=== PATIENT | male | born 1965 | race Caucasian/White ===

== ENCOUNTER 2018-02-14 11:13 | Emergency (ER) | payer MEDICAID ==
--- NOTE | 2018-02-14 11:43 | EDPHY ---
H & P Smoking Status: Never smoked Time Seen by Provider: 02/14/18 11:27 HPI/ROS: Chief complaint. Abdominal pain HPI. Patient 52-year-old male with abdominal pain for 2 days. Initially the pain was right upper quadrant. He has been using medication Zofran for nausea. He has become constipated with last bowel movement 2 days ago. Now he has generalized crampy type abdominal pain as well as continuing right upper quadrant pain. He had similar symptoms of right upper quadrant pain 2 weeks ago and was seen in another emergency department though he is not quite sure which 1. They did an ultrasound and he has gallstones. He is currently trying to his gallstones non operatively. The constipation has been treated over the last 2 days with enema and laxatives. No fever, chest discomfort, trouble breathing. Apparently nausea but no vomiting. The right upper quadrant pain has been persistent for 2 days. ROS 10 systems were reviewed and negative with the exception of the elements mentioned in the history of present illness (Yisel Casillas) Past Medical/Surgical History: Gallstones (Yisel Casillas) Social History: Single, nonsmoker, no alcohol (Yisel Casillas) Physical Exam: General Appearance: Alert well-developed male moderate distress vital signs are stable Eyes: Pupils equal and round no pallor or injection. ENT, Mouth: Mucous membranes are moist. Respiratory: There are no retractions, lungs are clear to auscultation. Cardiovascular: Regular rate and rhythm. Gastrointestinal: Abdomen is soft with right upper quadrant tenderness. He also has generalized tenderness especially in the periumbilical area. Normal bowel sounds. No masses. Neurological: Awake and alert, sensory and motor exams grossly normal. Skin: Warm and dry, no rashes. Musculoskeletal: Neck is supple nontender. Extremities symmetrical, full range of motion. Psychiatric: Patient is oriented X 3, there is no agitation. (Yisel Casillas) Constitutional: Initial Vital Signs Temperature (C) 36.8 C 02/14/18 11:16 Heart Rate 69 02/14/18 11:16 Respiratory Rate 18 02/14/18 11:16 Blood Pressure 131/87 H 02/14/18 11:16 O2 Sat (%) 96 02/14/18 11:16 O2 Delivery Mode Room Air O2 (L/minute) 2 Allergies/Adverse Reactions: No Known Allergies Allergy (Unverified 02/14/18 11:18) Home Medications: Medication Instructions Recorded Dicyclomine [Bentyl 20 MG (*)] 20 mg PO PRN PRN #10 tab 02/14/18 Peg 3350/Na Sulf,Bicarb,Cl/KCl 2,000 ml PO BOLUS #1 btl 02/14/18 [Golytely (RX)] Medical Decision Making - Diagnostics Imaging Results: Imaging Impressions Abdomen Ultrasound 02/14/18 11:57 Impression: 1. There is an echogenic solid 3.3 cm mass in the inferior right hepatic lobe. Multiphasic contrast-enhanced CT imaging is suggested for further assessment. 2. Cholelithiasis with gallbladder sludge and hydrops. There is no bile duct dilatation. If there is further clinical concern regarding gallbladder dysfunction/pathology, a HIDA scan could be considered. 3. Nonvisualization of the pancreas secondary to overlying bowel gas. Findings were discussed with YISEL CASILLAS MD at 13:00, on 02/14/2018. Abdomen X-Ray 02/14/18 11:57 Impression: Proximal constipation with possible fecal impaction versus mid colon obstruction. Results discussed with Dr. Casillas at 12:[address] 02/14/18 12:53 Impression: 1. Acute cholecystitis with cholelithiasis and pericholecystic inflammatory changes. Recommend surgery consult. 2. Constipation involving the ascending and transverse colon. Recommend follow- up colonoscopy given the atypical decompression of the descending colon beginning at the splenic flexure for further evaluation. 3. Indeterminate 3.8 x 3.5 cm mass in the right lobe of the liver inferiorly for which follow-up triple phase hemangioma protocol CT abdomen with contrast is recommended to differentiate malignant neoplasm from atypical hemangioma. Findings and recommendations discussed with Emergency Department physician, Yisel Casillas at 1350 hour, 02/14/2018. Final report concurs with initial preliminary interpretation. Upright KUB shows multiple air-fluid levels with proximal constipation no stool in the descending Colon Right upper quadrant ultrasound reviewed by me and discussed with Dr. Chavis shows gallbladder sludge. There are dependent, mobile stones. No wall thickening. No dilatation of the common bile duct. Probable hemangioma in hepatic lobe of his liver (Yisel Casillas) Procedures: IV normal saline. Dilaudid for pain. Zofran for nausea (Yisel Casillas) ED Course/Re-evaluation: Re-evaluation at 2:00 p.m.. Patient and I discussed imaging and lab results including recommendation for surgical evaluation. He expresses understanding and agreement I consulted discussed the case with Dr. Galvez for surgery who will see the patient in the ED (Yisel Casillas) I took over care of this patient at 3:[address] Yisel Casillas. This patient is currently being evaluated by Dr. Triston Galvez of the Surgical service for possible operative management of acute cholecystitis. 3:55 p.m., the patient has been seen and evaluated by general surgeon Dr. Triston Galvez. The patient is declining surgical management or inpatient admission for observation at this time. Dr. Galvez has cleared this patient for discharge to home. The patient is to follow up with his primary care physician. Dr. Galvez suspects he will be back when he has another gallbladder attack. The patient will be prescribed a half prep of GoLYTELY for constipation as well as Bentyl 20 mg q.[address] Galvez also recommends a [address] to evaluate the patient's liver mass. This can be set up through his primary care physician and the patient's discharge instructions will reflect this. The patient's remaining emergency department course under my care has been uneventful. He is currently pain-free and has a benign abdomen. He was discharged in good condition according to Dr. Galvez's instructions. (Bonnie Kam) Care Turn Over: Care to Dr. Kam at 3:00 p.m. (Yisel Casillas) - Data Points Laboratory Results: Laboratory Results 02/14/18 11:30 02/14/18 11:30 02/14/18 02/14/18 11:30 11:30 WBC 13.71 10^3/uL H 10^3/uL (3.80-9.50) RBC 5.22 10^6/uL 10^6/uL (4.40-6.38) Hgb 16.3 g/dL g/dL (13.7-17.5) Hct 46.3 % % (40.0-51.0) MCV 88.7 fL fL (81.5-99.8) MCH 31.2 pg pg (27.9-34.1) MCHC 35.2 g/dL g/dL (32.4-36.7) RDW 12.2 % % (11.5-15.2) Plt Count 204 10^3/uL 10^3/uL (150-400) MPV 8.7 fL fL (8.7-11.7) Neut % (Auto) 80.4 % H % (39.3-74.2) Lymph % (Auto) 10.6 % L % (15.0-45.0) Polk % (Auto) 7.5 % % (4.5-13.0) Eos % (Auto) 0.6 % % (0.6-7.6) Baso % (Auto) 0.4 % % (0.3-1.7) Nucleat RBC Rel Count 0.0 % % (0.0-0.2) Absolute Neuts (auto) 11.03 10^3/uL H 10^3/uL (1.70-6.50) Absolute Lymphs (auto) 1.45 10^3/uL 10^3/uL (1.00-3.00) Absolute Monos (auto) 1.03 10^3/uL H 10^3/uL (0.30-0.80) Absolute Eos (auto) 0.08 10^3/uL 10^3/uL (0.03-0.40) Absolute Basos (auto) 0.05 10^3/uL 10^3/uL (0.02-0.10) Absolute Nucleated RBC 0.00 10^3/uL 10^3/uL (0-0.01) Immature Gran % 0.5 % % (0.0-1.1) Immature Gran # 0.07 10^3/uL 10^3/uL (0.00-0.10) Sodium 138 mEq/L mEq/L (135-145) Potassium 4.3 mEq/L mEq/L (3.3-5.0) Chloride 101 mEq/L mEq/L (97-110) Carbon Dioxide 26 mEq/l mEq/l (22-31) Anion Gap 11 mEq/L mEq/L (6-14) BUN 12 mg/dL mg/dL (7-23) Creatinine 0.9 mg/dL mg/dL (0.7-1.3) Estimated GFR > 60 Glucose 109 mg/dL H mg/dL (70-100) Calcium 9.6 mg/dL mg/dL (8.5-10.4) Total Bilirubin 1.7 mg/dL H mg/dL (0.1-1.4) Conjugated Bilirubin 0.2 mg/dL mg/dL (0.0-0.5) Unconjugated Bilirubin 1.5 mg/dL H mg/dL (0.0-1.1) AST 28 IU/L IU/L (17-59) ALT 34 IU/L IU/L (21-72) Alkaline Phosphatase 111 IU/L IU/L (38-126) Total Protein 7.9 g/dL g/dL (6.3-8.2) Albumin 4.8 g/dL g/dL (3.5-5.0) Lipase 129 IU/L IU/L (23-300) Medications Given: Discontinued Medications Hydromorphone HCl (Dilaudid) 0.5 mg IVP EDNOW ONE Stop: 02/14/18 11:57 Last Admin: 02/14/18 12:04 Dose: 0.5 mg Sodium Chloride (Ns) 1,000 mls @ 0 mls/hr IV EDNOW ONE; Wide Open PRN Reason: Protocol Stop: 02/14/18 11:57 Last Admin: 02/14/18 12:04 Dose: 1,000 mls Sodium Chloride (Ns) 1,000 mls @ 0 mls/hr IV EDNOW ONE; Wide Open PRN Reason: Protocol Stop: 02/14/18 11:57 Last Admin: 02/14/18 12:06 Dose: 1,000 mls Ondansetron HCl (Zofran) 4 mg IVP EDNOW ONE Stop: 02/14/18 11:57 Last Admin: 02/14/18 12:06 Dose: 4 mg Departure - Departure Disposition: Home, Routine, Self-Care Clinical Impression: Gallstones, Biliary colic, Constipation, Liver lesion Condition: Good Instructions: Biliary Colic (ED), Gallstones (ED), Constipation (ED) Additional Instructions: Read and follow provided instructions. Follow-up with your primary care physician in 2-3 days for re-evaluation as discussed with Dr. Galvez. Your primary care physician is to arrange for you to have a [address] scan to evaluate the mass in your liver. I will prescribe you a 1/2 prep of GoLYTELY to treat your constipation. You will also be prescribed Bentyl that you can take as needed for constipation. Return to the emergency department for return of abdominal pain, vomiting, fever or other serious concerns. Referrals: NONE *PRIMARY CARE P,. [Primary Care Provider] - As per Instructions Prescriptions: Dicyclomine [Bentyl 20 MG (*)] 20 mg PO PRN PRN #10 tab PRN Reason: Constipation Peg 3350/Na Sulf,Bicarb,Cl/KCl [Golytely (RX)] 2,000 ml PO BOLUS #1 btl
[2018-02-14] MEDS ORDERED: HYDROmorphONE/DILAUDID 2 MG/ML INJ IVP ONE (11:56)
[2018-02-14] MEDS ORDERED: NS 1,000 ML IV ONE ×2 (11:56)
[2018-02-14] MEDS ORDERED: ONDANSETRON 4 MG/2 ML VIAL IVP ONE (11:56)
[2018-02-14 12:06] LABS: PLATELET COUNT 204 10^3/uL (150-400)
[2018-02-14] MEDS ORDERED: IOPAMIDOL (ISOVUE-300) 100 ML BTL ONE (13:04)
[2018-02-14 15:52] VITALS: BP 118/81
--- NOTE | 2018-02-14 16:57 | GCON ---
REASON FOR CONSULTATION: Gallbladder disease and hepatic mass. HISTORY: The patient is a 52-year-old white male who first had a biliary attack approximately 1-1/2 years ago. Two weeks ago, he had a large amount of fatty food, had severe right upper quadrant pain and went to another hospital where he was diagnosed as having gallstones. His pain resolved. He was sent home with Silo Labsan and Huntington. Two days ago after eating almonds, he had the onset of right upper quadrant pain, which was started as an ache, then became a sharp pain that he could get away from. He could not find a comfortable position. He did try his pain medications, which reduced the intensity. He slept poorly that night in that he could not find a comfortable position. In the morning, he had no pain, but felt more issues with lower abdominal pain. He has had a recrudescence of his pain today. Note is made that his last stool was on Tuesday. He presented to the emergency department where an x-ray showed that he was full of stool that had accumulated in his ascending and transverse colon. An ultrasound showed a gallbladder with stones. He had a negative Boston sign. There is no wall thickening seen and no pericholecystic fluid. Subsequently a CT scan was obtained, which did show pericholecystic fluid, gallbladder wall thickening, and stones. Both ultrasound and CT scan revealed a mass at the inferior edge of the right lobe of the liver, which measured 3.3 x 3.3 x 3.0 cm. It does not appear to be vascular; however, 3-phase study was not performed and given his dye load can not be performed today. I was asked to come see the patient for further evaluation. SOCIAL HISTORY: He does not drink. He does not smoke. 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 ALLERGIES: He has no known drug allergies. MEDICATIONS: He has been using Zofran and Huntington for nausea and pain control. In addition, he takes vitamin D, omega-3, multivitamin, spirulina, glucosamine, and magnesium. PAST SURGICAL HISTORY: Include 3 right knee surgeries. First was an ACL with repair of the hamstring tendon. He had a patellar fracture with fragment removal, and then, he had a clean-out. He did have a pulmonary embolism several years ago after he had significant romantic breakup. He sat at home and did not move for 3 to 5 days. At that time, he was placed on anticoagulation for 6 months. He says he had a hypercoagulation workup, which was negative. There is no history of rheumatic fever, tuberculosis, or transfusions. He is hepatitis B antigen positive. REVIEW OF SYSTEMS: He has had concussions. He wears lenses for visual correction. He has 1 dental implant. Review of systems otherwise quite negative. There are no limits on his activities. No history of steroid use. PHYSICAL EXAMINATION: GENERAL: He is awake, alert, and pleasant. VITAL SIGNS: Blood pressure 98/57, at 72. His respirations are 16. Saturations are 92% on 2 L/minute. NEUROLOGIC: He is awake, alert, oriented, moving all extremities. HEENT/NECK: Head: Normocephalic and atraumatic. Pupils equal, round, reactive to light and accommodation. He has normal dental occlusion. There are no carotid bruits. Thyroid is not enlarged. Neck is supple. BACK: Unremarkable. LUNGS: Clear to auscultation. CARDIAC: Shows S1, S2 to be normal with normal split of S2 without murmurs, rubs, or gallops. ABDOMEN: Tender in the right abdomen with cough. His bowel sounds are hypoactive. To palpation on a scale of 1-10, left upper quadrant is 1, left mid abdomen is 1, left lower quadrant is 2, epigastrium is 1, periumbilical area is 3, suprapubic area is 2, right upper quadrant is 4 with a positive Boston sign, right mid abdomen is 4, right lower quadrant is 1. LABORATORY DATA: White blood cell count is 13.7 with 80% neutrophils, hematocrit is 46, platelets are 204. His bilirubin is 1.7 with mainly indirect. He has never heard the term Gilbert disease before. His lipase is normal at 129, his alkaline phosphatase is 111, his transaminases are 28 and 34 respectively. IMPRESSION/RECOMMENDATIONS: Long discussion was carried out regarding biliary physiology. He has wanted to try to use a nonoperative approach to cleanse of his gallstones. He is convinced that is a reasonable alternative for him. I have suggested that since his pain is now almost fully resolved that he could try Bentyl for recurrent colic, but I have told him there is a very strong chance he will be back in an ER or hospital within next 2 weeks with recurrent biliary issues. 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 I suggest that he talk to his family physician and have a 3- phase study and make plans for percutaneous biopsy of the mass. He understands these thoughts. He states he will return if he has further issues. /[id number]/MODL MTDD
== END 2018-02-14 16:15 | disposition home or self-care (01) ==
DX: K80.20 Calculus of gallbladder without cholecystitis without obstruction (principal); K59.00 Constipation, unspecified; K76.9 Liver disease, unspecified; E86.9 Volume depletion, unspecified; Z86.711 Personal history of pulmonary embolism
CPT/HCPCS: 96374; J1170; J2405; Q9967

== ENCOUNTER 2018-02-15 00:06 | Emergency (ER) | payer MEDICAID ==
[2018-02-15] MEDS ORDERED: KETOROLAC 30 MG/1 ML SDV IVP ONE (00:36)
[2018-02-15] MEDS ORDERED: ONDANSETRON 4 MG/2 ML VIAL IVP ONE (00:36)
[2018-02-15] MEDS ORDERED: NS 1,000 ML IV ONE (00:36)
[2018-02-15] MEDS ORDERED: KETOROLAC 15 MG/1 ML SDV ONE (00:44)
--- NOTE | 2018-02-15 00:46 | EDPHY ---
H & P Stated Complaint: ABD pain-seen 02/14 for gallbladder and partial SBO and CP Time Seen by Provider: 02/15/18 00:15 HPI/ROS: HPI The patient presents with ongoing abdominal pain and bloating since he left the emergency department yesterday. The patient has had a total of about 2 and half days of his right upper quadrant abdominal pain associated with constipation. He was evaluated in the ER yesterday and had abdominal ultrasound and CT scan as well as labs. Imaging demonstrated dilated gallbladder with sludge and stones, constipation, liver mass. Patient was seen by Dr. Galvez of surgery though declined admission for biliary colic. He went home and drink GoLYTELY, used an enema, took Pepto-Bismol, however his symptoms progressed and that is why he presents.. REVIEW OF SYSTEMS 10 systems were reviewed and negative with the exception of the elements mentioned in the history of present illness. PMHx: gallstones Soc Hx: housed PHYSICAL General Appearance: Alert, no distress Eyes: Pupils equal and round no pallor or injection ENT, Mouth: Mucous membranes moist Respiratory: There are no retractions, lungs are clear to auscultation Cardiovascular: Regular rate and rhythm Gastrointestinal: Abdomen is slightly distended, tender in the right upper quadrant, no masses, bowel sounds normal Neurological: A&O, moves all extremities Skin: Warm and dry, no rashes Musculoskeletal: Neck is supple non tender Extremities: symmetrical, full range of motion Psychiatric: Patient is oriented X 3, there is no agitation Source: Patient Exam Limitations: No limitations - Personal History Current Tetanus Diphtheria and Acellular Pertussis (TDAP): Yes - Medical/Surgical History Hx Asthma: No Hx Chronic Respiratory Disease: No Hx Diabetes: No Hx Cardiac Disease: No Hx Renal Disease: No Hx Cirrhosis: No Hx Alcoholism: No Other PMH: Gallstones, partial SBO, - Social History Smoking Status: Never smoked Constitutional: Initial Vital Signs Temperature (C) 37 C 02/15/18 00:09 Heart Rate 79 02/15/18 00:09 Respiratory Rate 16 02/15/18 00:09 Blood Pressure 134/77 H 02/15/18 00:09 O2 Sat (%) 95 02/15/18 00:09 O2 Delivery Mode Room Air Allergies/Adverse Reactions: No Known Allergies Allergy (Unverified 02/15/18 00:09) Home Medications: Medication Instructions Recorded Dicyclomine [Bentyl 20 MG (*)] 20 mg PO PRN PRN #10 tab 02/14/18 Peg 3350/Na Sulf,Bicarb,Cl/KCl 2,000 ml PO BOLUS #1 btl 02/14/18 [Golytely (RX)] Medical Decision Making Differential Diagnosis: This is a 52-year-old man with known gallstones as well as constipation who was in the ER within the last 24 hr for abdominal pain. He decided to go home after surgical consultation. He has been taking laxatives and drinking GoLYTELY , however he is having ongoing abdominal pain and that has brought him back to the emergency department. Here, he is slightly distended with tenderness in his upper abdomen. In the emergency department, IV line was placed and patient was given IV fluids. Basic labs were all unchanged from earlier in the day today. He wanted to try drinking his GoLYTELY here and was able to do this. He had several bowel movements afterwards and felt much better. Repeat abdominal exam was benign. I feel that his symptoms on this visit were due to constipation more than from biliary colic. He felt well enough to go home and asked to be discharged. I explained to him that he will need follow-up with General surgery for his gallstones if he has any ongoing right upper quadrant abdominal pain. He is aware of this. - Data Points Laboratory Results: Laboratory Results 02/15/18 00:50 02/15/18 00:50 Medications Given: Discontinued Medications Al Hydroxide/Mg Hydroxide (Maalox Susp) 30 ml PO EDNOW ONE Stop: 02/15/18 01:37 Last Admin: 02/15/18 01:41 Dose: 30 ml Dicyclomine HCl (Bentyl) 20 mg PO EDNOW ONE Stop: 02/15/18 01:37 Last Admin: 02/15/18 01:40 Dose: 20 mg Sodium Chloride (Ns) 1,000 mls @ 0 mls/hr IV EDNOW ONE; Wide Open PRN Reason: Protocol Stop: 02/15/18 00:37 Last Admin: 02/15/18 00:51 Dose: 1,000 mls Ketorolac Tromethamine (Toradol) 15 mg IVP EDNOW ONE Stop: 02/15/18 00:37 Last Admin: 02/15/18 00:53 Dose: 15 mg Lidocaine (Lidocaine 2% Viscous) 5 ml PO EDNOW ONE Stop: 02/15/18 01:37 Last Admin: 02/15/18 01:41 Dose: 5 ml Ondansetron HCl (Zofran) 4 mg IVP EDNOW ONE Stop: 02/15/18 00:37 Last Admin: 02/15/18 00:52 Dose: 4 mg Departure - Departure Disposition: Home, Routine, Self-Care Clinical Impression: Constipation, Biliary colic Condition: Good Instructions: Constipation (ED) Additional Instructions: Please make sure to drink plenty of fluids. You should return to the emergency department if your worse in any way. Please follow-up with your primary care doctor about the mass seen on your liver. Referrals: NONE *PRIMARY CARE P,. [Primary Care Provider] - As per Instructions
[2018-02-15 01:03] LABS: PLATELET COUNT 170 10^3/uL (150-400)
[2018-02-15] MEDS ORDERED: LIDOCAINE 2% VISCOUS 15 ML UDCUP PO ONE (01:36)
[2018-02-15] MEDS ORDERED: DICYCLOMINE 10 MG CAP PO ONE (01:36)
[2018-02-15] MEDS ORDERED: MAG HYDROX/AL HYDROX/SIMETH 30 ML UDCUP PO ONE (01:36)
[2018-02-15 04:01] VITALS: BP 116/68
== END 2018-02-15 04:01 | disposition home or self-care (01) ==
DX: K59.00 Constipation, unspecified (principal); K80.20 Calculus of gallbladder without cholecystitis without obstruction; E86.9 Volume depletion, unspecified
CPT/HCPCS: 96374; J1885; J2405

== ENCOUNTER 2018-02-16 20:09 | Inpatient (IN) | payer MEDICAID ==
--- NOTE | 2018-02-16 20:33 | EDPHY ---
General - History Smoking Status: Never smoked Time Seen by Provider: 02/16/18 20:21 Narrative: CHIEF COMPLAINT: Abdominal pain, constipation HISTORY OF PRESENT ILLNESS: Patient presents by private vehicle with complaints of abdominal pain and bloating. His symptoms originally started on Tuesday. At that time he has had right upper quadrant pain, lower abdominal pain and some constipation. He was evaluated here twice and diagnosed with cholecystitis with cholelithiasis as well as moderate to severe constipation. He ultimately chose to go home and took GoLYTELY. He said he eventually had 3 bowel movements and felt better for short period of time. He now has increasing abdominal pain and bloating. No burping. No fever. No vomiting. Pain is worse palpation and movement. Currently 05/21. Does not radiate. He has no chest pain or shortness of breath. No fever. No cough. He associates this with some difficulty urinating at times despite drinking water. No other associated complaints or modifying factors. REVIEW OF SYSTEMS: 10 systems were reviewed and negative with the exception of the elements mentioned in the history of present illness. PCP: Dr. Solo SPECIALISTS: None currently PAST MEDICAL HISTORY: Cholelithiasis, cholecystitis, constipation PAST SURGICAL HISTORY: No recent surgical history. SOCIAL HISTORY: Nonsmoker. Lives independently. FAMILY HISTORY: Noncontributory EXAMINATION: Vitals: Triage VS reviewed General Appearance: Alert, no distress. Nontoxic. Well appearing. Head: normocephalic, atraumatic Eyes: Pupils equal and round, no conjunctival pallor or injection ENT, Mouth: Mucous membranes moist Neck: Normal inspection, supple, non-tender Respiratory: Lungs are clear to auscultation Cardiovascular: Regular rate and rhythm Gastrointestinal: Abdomen is soft. Mild distention and mild tympany. No rigidity. No guarding. There is tenderness in all 4 quadrants without definitive Boston sign. No peritonitis. Neurological: A&O, nonfocal, normal gait Skin: Warm and dry, no rash no petechiae or purpura Extremities: Nontender, no pedal edema Psychiatric: Mood and affect normal DIFFERENTIAL DIAGNOSES: Including but not limited to cholelithiasis, cholecystitis, biliary colic, partial small-bowel obstruction, bowel obstruction, constipation, obstipation MDM: 8:20 p.m. Increasing abdominal distention and generalized abdominal pain after 3 bowel movements. Patient was recently here evaluated twice by ED physician and once by general surgeon. Diagnosed with biliary colic with calculus cholecystitis. He also had significant constipation. He elected to be discharged home after having several bowel movements. He was feeling well until last night. He now has increasing pain and feeling of bloatedness. He has nausea but no vomiting. No burping. No fever chills. He has also had decreased urine output today. IV has been established. Laboratory studies pending. I have ordered a plain film. 8:45 p.m. X-ray as read by me, without radiologist does reveal some air-fluid levels and constipation. Notified by RN. Bladder scanner reveals approximately 200 mL. I have ordered IV fluid and we will re-evaluate. 9:05 p.m. Case discussed with on-call general surgeon Dr. Galvez. He evaluated the patient 2 days ago in this emergency department. He has reviewed the laboratory studies and plain film. He requests gallbladder ultrasound. He will provide consultation following this. 10:30 p.m. Notified by radiologist Dr. Chavis. Ultrasound shows progression of his previous cholecystitis. He now has a gallstone at the bladder neck and now evidence of choledocholithiasis. There is also increasing margy cholecystic fluid. I discussed the case with Dr. Galvez and he recommended admission for ERCP versus MRCP. 11:05 p.m. Case discussed with hospitalist Dr. Minnie Becerril. She will admit the patient to her service. He is admitted stable condition. We discussed that he may need enema for lower colonic constipation. She is requesting that GI be consulted. 11:15 p.m. Case discussed with Dr. Buckner. He will see the patient in consultation but is requesting an MRCP this evening. He would also like to recheck LFTs in the morning. 11:[address] Buckner is comfortable with the MRCP being performed 1st thing in the morning. I discussed this with the MR technicians and they will do so with 6:00 a.m.. Patient has also been evaluated by Dr. Becerril and Dr. Galvez in the emergency department. 12:12 a.m. Notified by RN. Patient is temperature is now 38.1 C. I discussed with Dr. Becerril and she requests 1g IV Ertapenem. 12:20 a.m. Patient is being transported to his inpatient room. SUPERVISION: Patient was independently examined, but I discussed the case with my secondary supervising physician Dr. Hernandez CONSULTATION: GI by telephone, Dr. Buckner ([facility]) Discussion: The patient was evaluated and managed by the Physician Aerodynamic Consultant. I discussed the patient's presentation and course with the midlevel provider with them and agree with the evaluation. My co-signature indicates that I have reviewed this chart and I agree with the findings and plan of care as documented. I am the secondary supervising physician. (Giselle Hernandez) - Objective Vital Signs: Initial Vital Signs Temperature (C) 37.1 C 02/16/18 20:12 Heart Rate 73 02/16/18 20:12 Respiratory Rate 18 02/16/18 20:12 Blood Pressure 130/78 H 02/16/18 20:12 O2 Sat (%) 96 02/16/18 20:12 O2 Delivery Mode Room Air Allergies/Adverse Reactions: No Known Allergies Allergy (Unverified 02/16/18 20:11) Home Medications: Medication Instructions Recorded Cholecalciferol Vit D3 [Vitamin D3 5,000 units PO DAILY 02/17/18 (*)] Herbals/Supplements -Info Only 1 ea PO DAILY 02/17/18 Hydrocodone/APAP 5/325 [[place] 1 each PO Q6 PRN 02/17/18 5/325 (*)] Melatonin [Melatonin 5 mg] 5 mg PO HS 02/17/18 Multivitamins [Multivitamin (*)] 1 each PO DAILY 02/17/18 Ondansetron HCl 4 mg PO Q8 PRN 02/17/18 Laboratory Results: Laboratory Results 02/16/18 20:30 02/16/18 20:30 Medications Given: Cholecalciferol (Vitamin D) 5,000 units PO DAILY IRON Stop: 08/17/18 08:59 Last Admin: 02/18/18 08:33 Dose: 5,000 units Ertapenem 1 gm/ Sodium (Chloride) 100 mls @ 200 mls/hr IV HS IRON Stop: 03/19/18 20:59 Last Admin: 02/18/18 22:13 Dose: 100 mls Lactulose (Cephulac) 20 gm PO TID PRN; Protocol PRN Reason: Constipation Stop: 08/16/18 00:19 Last Admin: 02/17/18 12:44 Dose: 20 gm Magnesium Hydroxide (Milk Of Magnesia) 30 ml PO DAILY PRN; Protocol PRN Reason: Constipation Stop: 08/16/18 00:19 Last Admin: 02/17/18 15:11 Dose: 30 ml Miscellaneous Medication (Melatonin [Melatonin 5 Mg]) 5 mg PO HS COUNT INCLUDES THE [facility] Stop: 08/16/18 20:59 Last Admin: 02/18/18 22:14 Dose: Not Given Multivitamins (Tab-A-Ed) 1 each PO DAILY IRON Stop: 08/17/18 08:59 Last Admin: 02/18/18 08:31 Dose: 1 each Polyethylene Glycol (Miralax) 17 gm PO DAILY PRN; Protocol PRN Reason: Constipation, patient prefers Stop: 08/16/18 00:19 Last Admin: 02/17/18 17:37 Dose: 17 gm Senna/Docusate Sodium (Senokot-S) 1 - 2 tab PO BID IRON PRN Reason: Protocol Stop: 08/16/18 08:59 Last Admin: 02/18/18 22:14 Dose: Not Given Discontinued Medications Enoxaparin Sodium (Lovenox) 90 mg SC BID COUNT INCLUDES THE [facility] Stop: 08/17/18 13:44 Last Admin: 02/18/18 16:25 Dose: Not Given Sodium Chloride (Ns) 1,000 mls @ 0 mls/hr IV ONCE ONE PRN Reason: Wide Open Stop: 02/16/18 20:54 Last Admin: 02/16/18 20:55 Dose: 1,000 mls Sodium Chloride (Ns) 1,000 mls @ 0 mls/hr IV EDNOW ONE; Wide Open PRN Reason: Protocol Stop: 02/16/18 20:49 Last Admin: 02/16/18 21:16 Dose: 1,000 mls Sodium Chloride (Ns) 1,000 mls @ 125 mls/hr IV CONT IRON Stop: 08/15/18 23:29 Last Admin: 02/17/18 11:09 Dose: 1,000 mls Ertapenem 1 gm/ Sodium (Chloride) 100 mls @ 200 mls/hr IV EDNOW ONE PRN Reason: Protocol Stop: 02/17/18 00:41 Last Admin: 02/17/18 01:08 Dose: 100 mls Lorazepam (Ativan Injection) 0.5 - 1 mg IVP Q8HRS PRN PRN Reason: Anxiety, Unable to Take PO Stop: 08/15/18 23:22 Last Admin: 02/17/18 00:13 Dose: 0.5 mg Morphine Sulfate (Morphine) 4 mg IVP EDNOW ONE Stop: 02/16/18 23:06 Last Admin: 02/17/18 01:07 Dose: Not Given Ondansetron HCl (Zofran) 4 mg IVP EDNOW ONE Stop: 02/16/18 23:06 Last Admin: 02/17/18 01:07 Dose: Not Given Point of Care Test Results: Chemistry 02/16/18 20:38 POC Sodium 136 mEq/L mEq/L (135-145) POC Potassium 3.5 mEq/L mEq/L (3.3-5.0) POC Chloride 99 mEq/L mEq/L (97-110) POC BUN 8 mg/dL mg/dL (7-23) POC Creatinine 0.8 mg/dL mg/dL (0.7-1.3) POC Glucose 127 mg/dL H mg/dL (70-100) ISTAT H&H 02/16/18 20:38 POC Hgb 15.3 gm/dL gm/dL (13.7-17.5) POC Hct 45 % % (40-51) Departure - Departure Disposition: [facility] Inpatient Acute Clinical Impression: Acute cholecystitis, Choledocholithiasis Constipation Qualifiers: Constipation type: unspecified constipation type Qualified Code(s): K59.00 - Constipation, unspecified Condition: Good
[2018-02-16 20:45] LABS: PLATELET COUNT 185 10^3/uL (150-400)
[2018-02-16] MEDS ORDERED: NS 1,000 ML IV ONE ×2 (20:48→20:53)
[2018-02-16 20:54] LABS: INR 1.16 (0.83-1.16)
[2018-02-16] MEDS ORDERED: ONDANSETRON 4 MG/2 ML VIAL IVP ONE (23:05)
[2018-02-16] MEDS ORDERED: ONDANSETRON 4 MG/2 ML VIAL IVP PRN (23:23)
[2018-02-16] MEDS ORDERED: ONDANSETRON DISINTEGRATING 4 MG TAB PO PRN (23:23)
[2018-02-16] MEDS ORDERED: LORazepam 2 MG/ML INJ IVP PRN (23:23)
[2018-02-17] MEDS ORDERED: ERTAPENEM 1 GM in NS 100 ML IV ONE (00:12)
[2018-02-17] MEDS ORDERED: POLYETHYLENE GLYCOL 3350 17 GM PKT PO PRN (00:20)
[2018-02-17] MEDS ORDERED: MAGNESIUM HYDROXIDE 30 ML UDCUP PO PRN (00:20)
[2018-02-17] MEDS ORDERED: LACTULOSE 20 GM/30 ML UDCUP PO PRN (00:20)
[2018-02-17] MEDS ORDERED: BISACODYL 10 MG SUPP PR PRN (00:20)
[2018-02-17] MEDS: NS 1,000 ML IV SCH ×2 (01:07→11:09)
[2018-02-17 05:50] LABS: PLATELET COUNT 180 10^3/uL (150-400)
[2018-02-17 05:58] LABS: INR 1.18 (0.83-1.16); PROTIME(PATIENT) 15.2 SEC (12.0-15.0)
--- NOTE | 2018-02-17 06:42 | PDGENHP ---
History and Physical - Chief Complaint Abdominal pain and distension - History of Present Illness Source-patient provides history appears reliable. EMR was reviewed and case discussed with ED provider. HPI-this is a very pleasant 52-year-old gentleman with past medical history significant for cholelithiasis on previous partial small-bowel obstruction and appy in 2013 who presents to the emergency department today with complaints of increasing abdominal pain distention. Patient has been seen in the emergency department on February 14 February 15 and today's temper 6. He reports that he developed pain on Tuesday approximately 4 days ago and his right upper quadrant as well his his lower abdomen. Patient notes positive nausea without vomiting but he is not sure if it is nausea versus just GI upset due to increasing abdominal pain distention. He reports some subjective fevers at home without any chills but does note occasional sweats. Patient did undergo of bowel regimen after leaving the ED yesterday and after which he had 3 large bowel movements. His last passage of gas or bowel movements was approximately 20 min prior to my interview. The last was straining of watery stools without any melena or hematochezia. Patient repeats and is quite adamant that he does not want his gallbladder removed but he is amenable to further evaluation of is a concern for choledocholithiasis. History Information - Allergies/Home Medication List Allergies/Adverse Reactions: No Known Allergies Allergy (Unverified 02/16/18 20:11) I have personally reviewed and updated: family history, medical history, social history, surgical history - Past Medical History Additional medical history: HPV, constipation, history of partial small-bowel obstruction, cholelithiasis, history of PE in 2013 no longer on anticoagulation. Hemorrhoids. - Surgical History Additional surgical history: Right knee surgery x3 with ACL and patellar repair arthroscopic. - Family History Additional family history: Mother with history of gallbladder disease in her 40s. Asthma. - Social History Smoking Status: Never smoked Alcohol Use: Rarely (One drink per month) Drug Use: Marijuana (Rare marijuana use) Additional social history: Patient lives alone. Cor status is full. Review of Systems Review of Systems: ROS: 10pt was reviewed & negative except for what was stated in HPI & below Constitutional: Reports: fever. Denies: chills, weight loss EENMT: Reports: no symptoms Cardiac: Reports: other (Patient reports left spasm chest pain worse with movement and cough.) Respiratory: Reports: no symptoms Gastrointestinal: Reports: abdominal pain, abdominal distention, constipation, nausea, other (Patient denies any reflux symptoms.) Genitourinary: Reports: no symptoms Muscolosketal: Reports: no symptoms Skin: Reports: no symptoms Neurological: Reports: no symptoms Hematologic/Lymphatic: Reports: no symptoms Immunologic/Allergy: Reports: no symptoms Physical Exam Physical Exam: Selected Entries 02/16/18 20:12 Heart Rate 73 Respiratory 18 Rate O2 Sat (%) 96 Temperature (C) 37.1 C Blood Pressure 130/78 H Mean Arterial 95 Pressure (MAP) O2 Delivery Room Air Mode Temperature Oral Source Temp Pulse Resp BP Pulse Ox 37.1 C 68 18 108/62 92 02/17/18 03:33 02/17/18 03:33 02/17/18 03:33 02/17/18 03:33 02/17/18 03:33 Lab Data & Imaging Review 02/17/18 05:08 02/17/18 05:08 WBC 10.93 10^3/uL (3.80-9.50) H 02/17/18 05:08 RBC 4.38 10^6/uL (4.40-6.38) L 02/17/18 05:08 Hgb 13.5 g/dL (13.7-17.5) L 02/17/18 05:08 POC Hgb 15.3 gm/dL (13.7-17.5) 02/16/18 20:38 Hct 39.3 % (40.0-51.0) L 02/17/18 05:08 POC Hct 45 % (40-51) 02/16/18 20:38 MCV 89.7 fL (81.5-99.8) 02/17/18 05:08 MCH 30.8 pg (27.9-34.1) 02/17/18 05:08 MCHC 34.4 g/dL (32.4-36.7) 02/17/18 05:08 RDW 12.3 % (11.5-15.2) 02/17/18 05:08 Plt Count 180 10^3/uL (150-400) 02/17/18 05:08 MPV 8.7 fL (8.7-11.7) 02/17/18 05:08 Neut % (Auto) 77.8 % (39.3-74.2) H 02/17/18 05:08 Lymph % (Auto) 9.1 % (15.0-45.0) L 02/17/18 05:08 [place] % (Auto) 10.7 % (4.5-13.0) 02/17/18 05:08 Eos % (Auto) 1.5 % (0.6-7.6) 02/17/18 05:08 Baso % (Auto) 0.5 % (0.3-1.7) 02/17/18 05:08 Nucleat RBC Rel Count 0.0 % (0.0-0.2) 02/17/18 05:08 Absolute Neuts (auto) 8.51 10^3/uL (1.70-6.50) H 02/17/18 05:08 Absolute Lymphs (auto) 1.00 10^3/uL (1.00-3.00) 02/17/18 05:08 Absolute Monos (auto) 1.17 10^3/uL (0.30-0.80) H 02/17/18 05:08 Absolute Eos (auto) 0.16 10^3/uL (0.03-0.40) 02/17/18 05:08 Absolute Basos (auto) 0.05 10^3/uL (0.02-0.10) 02/17/18 05:08 Absolute Nucleated RBC 0.00 10^3/uL (0-0.01) 02/17/18 05:08 Immature Gran % 0.4 % (0.0-1.1) 02/17/18 05:08 Immature Gran # 0.04 10^3/uL (0.00-0.10) 02/17/18 05:08 PT 15.2 SEC (12.0-15.0) H 02/17/18 05:08 INR 1.18 (0.83-1.16) H 02/17/18 05:08 APTT 29.3 SEC (23.0-38.0) 02/17/18 05:08 POC Sodium 136 mEq/L (135-145) 02/16/18 20:38 Sodium 139 mEq/L (135-145) 02/17/18 05:08 POC Potassium 3.5 mEq/L (3.3-5.0) 02/16/18 20:38 Potassium 4.3 mEq/L (3.5-5.2) 02/17/18 05:08 POC Chloride 99 mEq/L (97-110) 02/16/18 20:38 Chloride 104 mEq/L (97-110) 02/17/18 05:08 Carbon Dioxide 28 mEq/l (22-31) 02/17/18 05:08 Anion Gap 7 mEq/L (6-14) 02/17/18 05:08 POC BUN 8 mg/dL (7-23) 02/16/18 20:38 BUN 8 mg/dL (7-23) 02/17/18 05:08 Creatinine 0.8 mg/dL (0.7-1.3) 02/17/18 05:08 POC Creatinine 0.8 mg/dL (0.7-1.3) 02/16/18 20:38 Estimated GFR > 60 02/17/18 05:08 Glucose 109 mg/dL (70-100) H 02/17/18 05:08 POC Glucose 127 mg/dL (70-100) H 02/16/18 20:38 Calcium 8.2 mg/dL (8.5-10.4) L 02/17/18 05:08 Total Bilirubin 0.8 mg/dL (0.1-1.4) 02/17/18 05:08 Conjugated Bilirubin 0.2 mg/dL (0.0-0.5) 02/16/18 20:30 Unconjugated Bilirubin 0.9 mg/dL (0.0-1.1) 02/16/18 20:30 AST 24 IU/L (17-59) 02/17/18 05:08 ALT 32 IU/L (21-72) 02/17/18 05:08 Alkaline Phosphatase 89 IU/L (38-126) 02/17/18 05:08 Total Protein 5.7 g/dL (6.3-8.2) L 02/17/18 05:08 Albumin 3.2 g/dL (3.5-5.0) L 02/17/18 05:08 Lipase 162 IU/L (23-300) 02/16/18 20:30 Urine Color YELLOW 02/17/18 00:45 Urine Appearance HAZY 02/17/18 00:45 Urine pH 7.0 (5.0-7.5) 02/17/18 00:45 Ur Specific [place] 1.010 (1.002-1.030) 02/17/18 00:45 Urine Protein NEGATIVE (NEGATIVE) 02/17/18 00:45 Urine Ketones 1+ (NEGATIVE) H 02/17/18 00:45 Urine Blood 1+ (NEGATIVE) H 02/17/18 00:45 Urine Nitrate NEGATIVE (NEGATIVE) 02/17/18 00:45 Urine Bilirubin NEGATIVE (NEGATIVE) 02/17/18 00:45 Urine Urobilinogen NEGATIVE EU (0.2-1.0) 02/17/18 00:45 Ur Leukocyte Esterase NEGATIVE (NEGATIVE) 02/17/18 00:45 Urine RBC 5-10 /hpf (0-3) H 02/17/18 00:45 Urine WBC 1-3 /hpf (0-3) 02/17/18 00:45 Ur Epithelial Cells NONE SEEN /lpf (NONE-1+) 02/17/18 00:45 Urine Mucus TRACE /lpf (NONE-1+) 02/17/18 00:45 Urine Glucose NEGATIVE (NEGATIVE) 02/17/18 00:45 Imaging Review: AP Upright Abdomen, 2 Views, at 7:57 PM Clinical History: 52-year-old male with abdominal pain, distention, and constipation with a possible small bowel obstruction. Comparison Study: Abdominal imaging, dated 02/14/2018. Findings: There are several nonspecific air-fluid levels seen throughout the abdomen with mild involvement of some loops of small bowel centrally although predominantly involving the descending colon, hepatic flexure, and the transverse colon, with relative decompression of the descending colon. There is no obstructing mass seen in the proximal descending colon on the recent CT scan, with fecal material seen proximal to the level of the splenic flexure. There is no free air. There is some basilar subsegmental atelectasis. The osseous structures are age- appropriate. There are no abnormal calcific radiodensities identified (although recent cross-sectional imaging did reveal cholelithiasis). Impression: Abnormal bowel gas pattern with multiple air-fluid levels seen with involvement of the colon to the level the splenic flexure. The above features may represent an ileus, although a developing obstructive pattern cannot be excluded. Dictated By: Artie Chavis MD Sonography Limited to the Right Upper Quadrant of the Abdomen Clinical History: 52-year-old male with a suspected calculus cholecystitis, presenting for sonographic reevaluation. Technique: A curvilinear 5 MHz transducer was used to sonographically evaluate the right upper quadrant of the abdomen. Color Doppler was used. This was a more appreciated study than that performed or 2 days ago, intended to further reevaluate gallbladder pathology and assess the biliary ducts. Comparison Study: Sonography and CT imaging of the abdomen, dated 02/14/2018. Findings: The pancreatic anatomy is obscured by overlying bowel gas. The abdominal aorta, IVC, hepatic vein trifurcation, and the main portal vein were not reevaluated today. There is an echogenic lesion once again seen in the caudal right hepatic lobe. There is no intra or extrahepatic bile duct dilatation. There is a persistent abnormal appearance of the gallbladder, which contains mobile stones as well as some dependent sludge, and the gallbladder is hydropic measuring up to 11.8 cm in length. The wall is abnormal, currently measuring 6.9 mm previously measuring under 3 mm and there is trace hyperemia with color Doppler. There is no sonographic Boston 's sign. There is trace pericholecystic fluid. The common bile duct measures 6 mm, however there appears to be an echogenic choledochal with, on one image measuring up to 9.7 mm in long axis. There is also a gallstone impacted in the neck. Impression: Gallbladder hydrops with sludge, stones, and increasing wall thickening with trace pericholecystic fluid and an impacted stone in the gallbladder neck as well as a suspected choledocholith, features which are more pronounced than on the study of 2 days ago. Surgical consultation is recommended. Findings were discussed with Cedric Wright PA-C at 22:42, on 02/16/2018. Dictated By: Artie Chavis MD 02/14/2018 CT Scan of the Abdomen and Pelvis (With Contrast) at 1308 hours History: Abdominal pain, leukocytosis, cholelithiasis. Comparison: Ultrasound gallbladder earlier today. Technique: Axial computed tomographic images of the abdomen and pelvis were obtained with the uneventful intravenous administration of 98 mL Isovue 300 contrast. No oral contrast. Dose reduction techniques were utilized. CT Abdomen Findings: Lung Bases: No pleural effusion. Liver: Right lobe of the liver 3.8 x 3.5 cm indeterminate lesion which although is hyperechoic on ultrasound, is indeterminate on this single phase study. Biliary System: Distended gallbladder with pericholecystic fluid, gallbladder wall thickening and several gallstones measuring up to 13 mm consistent with acute cholecystitis and cholelithiasis. No biliary ductal dilation. Spleen: Normal. Pancreas: Normal. Adrenals: Normal. Kidneys: No obstruction or solid masses. Abdominal Aorta: No aneurysm. A large amount of stool involving the ascending and transverse colon is consistent with constipation. No significant stool in the descending or sigmoid colon. A few diverticula in the descending and sigmoid colon without diverticulitis. No definite obstructing lesion at the splenic flexure, although follow-up colonoscopy is recommended. No pneumoperitoneum. No significant adenopathy. CT Pelvis Findings: No diverticulitis. No pelvic fluid collections. No destructive osseous lesions. Impression: 1. Acute cholecystitis with cholelithiasis and pericholecystic inflammatory changes. Recommend surgery consult. 2. Constipation involving the ascending and transverse colon. Recommend follow- up colonoscopy given the atypical decompression of the descending colon beginning at the splenic flexure for further evaluation. 3. Indeterminate 3.8 x 3.5 cm mass in the right lobe of the liver inferiorly for which follow-up triple phase hemangioma protocol CT abdomen with contrast is recommended to differentiate malignant neoplasm from atypical hemangioma. Findings and recommendations discussed with Emergency Department physician, Daniel Casillas at 1350 hour, 02/14/2018. Final report concurs with initial preliminary interpretation. Dictated By: Hima Car Visualized and Interpreted imaging results: Yes Assessment & Plan Assessment: Pleasant 52-year-old gentleman with past medical history significant for constipation, recently diagnosed cholecystitis who presents now with worsening abdominal distention and persistent worsening right upper quadrant abdominal pain. Acute cholecystitis (Acute) - patient reports that he is adamant that he does not want a cholecystectomy. Like to try to manage this conservatively with antibiotic therapy. He understands that given the findings of choledocholithiasis that additional intervention will be required to relieve the obstruction. General surgery consulted from the emergency department and consulted on the patient previously as well. Choledocholithiasis (Acute) - patient LFTs within normal limits at this time. GI was consulted from the emergency department recommends that patient have MRCP and monitor LFTs in the morning. They will consult in the morning further evaluated patient requires ERCP. Patient has been made NPO after midnight. Abdominal pain - patient complaining majority of pain is related to distension however he does have positive Boston sign and complains of increased pain in the right upper quadrant as well. Discussed with the patient given his history of constipation issues that narcotics could potential worsened those symptoms. He is amenable to a trial of Ativan with p.r.n. Morphine. Fever - patient with mildly elevated temp. Mildly elevated WBC as well. Patient will be given a dose of ertapenem x1 pending further evaluation and specialist recommendations. Patient does not meet severe sepsis criteria at this time. Will monitor closely additional studies as indicated. Constipation (Acute) - patient is status post a bowel regimen with multiple bowel movements but remains distended. He had large volume stool retention noted on previous imaging. Enemas p.r.n.. hx PE - holding anticoagulation pending further evaluation given possibilities of need for procedures. Recommend Lovenox once plan is ascertain. FEN - IV fluids while NPO. Electrolyte replacement monitoring p.r.n.. PPX - SCDs. Holding anticoagulation as noted above. COR - full Dispo - patient admitted inpatient status on the med/surg floor secondary to findings of choledocholithiasis acute cholecystitis. Anticipate greater than 2 midnight stay for continued evaluation treatment.
[2018-02-17] MEDS: SENNOSIDES/DOCUSATE SODIUM TAB PO SCH ×2 (08:20→21:05)
--- NOTE | 2018-02-17 10:18 | PDMN ---
Medical Necessity Medical necessity: Pt meets IP criteria as of 02/16/2018 per MD and MCG [id number] ( Gallbladder or Bile duct inflammation or stone); est los > 2 mn for ongoing tx and management of acute cholecystitis and choledocholithiasis with abdominal pain, fever and leukocytosis; requiring surgery consult, GI consult with likely ERCP, IVF, NPO status, and serial labs.
--- NOTE | 2018-02-17 10:51 | GCON ---
REFERRING PHYSICIAN: Minnie Becerril MD CHIEF COMPLAINT: Cholelithiasis, right upper quadrant pain. HISTORY OF PRESENT ILLNESS: I have been asked to see this 52-year-old gentleman in consultation by Minnie Becerril for evaluation of cholelithiasis and possible choledocholithiasis. This 52-year-old gentleman has a history of known cholelithiasis. He started having symptoms this past weekend with upper abdominal pain. He was seen in the emergency department with finding of cholelithiasis. It was recommended that he undergo a cholecystectomy. However , patient elected not to. He came back with recurrent episodes of abdominal pain. He was having increasing abdominal pain and distention. Denied any fevers or chills. No vomiting, but was having some nausea. He does have a remote history of appendectomy with small bowel obstruction. His liver function tests were normal. Slightly elevated white count of 10.9. He had imaging on February 14, showed cholelithiasis in the gallbladder, with gallbladder sludge and hydrops. The bile duct was not dilated. There also was a 3.3 cm mass in the inferior right hepatic lobe. CT scan was recommended. He did have a CT scan that showed acute cholecystitis with cholelithiasis and pericholecystic inflammation. He had an indeterminate 3.8 x 3.5 mass in the right lobe of the liver inferiorly. Recommended triple phase CT scan to evaluate for possible hemangioma. Patient did go home. He returned with continued pain. He had a repeat ultrasound that again showed gallbladder hydrops with sludge and stones, with increasing wall thickening and trace pericholecystic fluid. There was an impacted stone in the gallbladder neck, as well as questionable choledocholithiasis. However, liver function tests were normal. He was scheduled for an MRI and MRCP this morning. Results are pending. Asked to see patient for further evaluation. PAST MEDICAL HISTORY: Remarkable for previous appendectomy and small bowel obstruction, history of HPV, history of constipation, recent diagnosis of cholelithiasis, prior PE in 2013, currently not on anticoagulation. History of hemorrhoids. Right knee surgery for ACL and patellar repair. FAMILY HISTORY: Remarkable for a mother with gallbladder disease in her 40s. Otherwise negative as it pertains to chief complaint. SOCIAL HISTORY: Is a nonsmoker. Drinks rare alcohol. Does use marijuana on occasion. Lives alone. MEDICATIONS: None. ALLERGIES: No known drug allergies. REVIEW OF SYSTEMS: Negative for 10 systems, other than mentioned in HPI. PHYSICAL EXAM: VITAL SIGNS: 96/60, heart rate of 65, 92% sat, 37.2. GENERAL: Pleasant gentleman in no acute distress. HEENT: Normocephalic, atraumatic. EOMI. NECK: Supple. No cervical adenopathy. Mucous membranes moist. LUNGS: Clear. CARDIAC: Normal S1, S2, without murmur. ABDOMEN: Tender to palpation in the upper abdomen, in the epigastrium, right upper quadrant. Hypoactive bowel sounds. EXTREMITIES: Without clubbing, cyanosis, edema. NEURO: Nonfocal. SKIN: Warm, dry, intact. PSYCH: Alert and oriented x3, with normal affect. LABORATORY DATA: A white count of 10.93, hemoglobin 13.5, hematocrit 39.3, Serum chemistries: Serum sodium 139, potassium 4.3, chloride 104, CO2 28, blood sugar 109. Liver function tests: AST 24, ALT of 32, alkaline phosphatase of 89, total bilirubin 0.8. IMPRESSION: A 52-year-old gentleman with clinical presentation consistent with acute cholecystitis, with normal liver function tests and a normal-appearing bile duct reported to be 6 mm on ultrasound. I suspect he does not have choledocholithiasis. He has low probability of choledocholithiasis. Would recommend MRCP for further evaluation. In the setting of normal LFTs if MRCP is normal, without evidence of choledocholithiasis would not pursue ERCP. Would recommend IV antibiotics and cholecystectomy. Surgery has been consulted. /[id number]/MODL MTDD
--- NOTE | 2018-02-17 13:58 | ASMTCMCOM ---
CM Note CM Note Notes: CM reviewed chart for d/c planning. Pt is a 52 y/o male who came to the ED with abdominal pain and bloating, which began Tuesday. He was diagnosed with choleystitis. No OT/PT have been ordered. No CM needs have been identified. CM will follow for changes. D/C Plan: Anticipate independent. Date Signed: 02/17/2018 01:57 PM Electronically Signed By:Michelle Sabillon
[2018-02-17] MEDS ORDERED: ONDANSETRON DISINTEGRATING 4 MG TAB PO PRN (14:37)
--- NOTE | 2018-02-17 14:50 | HOSPPROG ---
Hospitalist Progress Note Assessment/Plan: Naida 52-year-old gentleman with past medical history significant for constipation, recently diagnosed cholecystitis who presents now with worsening abdominal distention and persistent worsening right upper quadrant abdominal pain. First encounter, chart reviewed. Acute cholecystitis (Acute) - patient reports that he is adamant that he does not want a cholecystectomy -MRCP done -try to manage this conservatively with antibiotic therapy and follow up -General surgery and GI consulted Possible Choledocholithiasis - patient LFTs within normal limits at this time -possible ERCP vs other treatment Abdominal pain - better Fever - patient with mildly elevated temp - Mildly elevated WBC - ertapenem Constipation (Acute) - patient is status post a bowel regimen with multiple bowel movements but remains distended hx PE - holding anticoagulation pending further evaluation given possibilities of need for procedures - Lovenox once plan is ascertain. FEN - IV fluids while NPO. Electrolyte replacement monitoring p.r.n.. PPX - SCDs. Holding anticoagulation as noted above. COR - full Dispo - unclear, rec lap antoni, will review with surgery. further plan per GI, surgery and patient cont NPO cont IV abx Subjective: Less abdominal pain. Questions about plan. Does not want surgery. Objective: Vital Signs Temp Pulse Resp BP Pulse Ox 36.8 C 65 12 110/74 93 02/17/18 11:58 02/17/18 11:58 02/17/18 11:58 02/17/18 11:58 02/17/18 11:58 Laboratory Results 02/17/18 05:08 02/17/18 05:08 02/16/18 02/17/18 02/18/18 05:59 05:59 05:59 Intake Total 2595 Output Total 800 Balance 1795 PT 15.2 SEC (12.0-15.0) H 02/17/18 05:08 INR 1.18 (0.83-1.16) H 02/17/18 05:08 - Physical Exam Constitutional: no apparent distress, appears nourished, not in pain Eyes: PERRL, anicteric sclera, EOMI Ears, Nose, Mouth, Throat: moist mucous membranes, hearing normal, ears appear normal Cardiovascular: regular rate and rhythym, No JVD, No edema Respiratory: no respiratory distress, no rales or rhonchi, reduced air movement Gastrointestinal: tenderness, distension, No ascites Skin: warm, normal color, No mottled Musculoskeletal: normal joint ROM, no joint effusions, generalized weakness Neurologic: AAOx3 Psychiatric: not anxious, not encephalopathic, poor insight ICD10 Worksheet Patient Problems: Problems Problem Status Onset Acute cholecystitis Acute Choledocholithiasis Acute Constipation Acute
[2018-02-17] MEDS: ERTAPENEM 1 GM in NS 100 ML IV SCH (21:05)
[2018-02-17] MEDS: Melatonin [Melatonin 5 Mg] 5 MG PO SCH (21:08)
--- NOTE | 2018-02-18 06:21 | GCON ---
DATE OF CONSULTATION: 02/17/2018 CHIEF COMPLAINT: Acute cholecystitis and cholelithiasis. HISTORY OF PRESENT ILLNESS: The patient is a 52-year-old man who had a large meal on February 12. He started developing abdominal pain. It worsened, and so he presented to the ER on February 14, 2018 . Ultrasound was obtained which showed cholelithiasis, sludge, and hydrops. He also had a hemangiom a. CT scan was obtained which showed acute cholecystitis and pericholecystic inflammation. He was a lso diagnosed with constipation. He was evaluated by Dr. Galvez and the patient declined surgery. Tatiana cano was feeling better and went home. He attempted GoLYTELY, but then had increasing lower abdominal p ain. He returned to the ER on February 15. He felt better after bowel movement, and so then was di scharged home. On February 16 he had increased pain and distention. Repeat ultrasound obtained [facility] showed hydrops, sludge, stone impacted in the gallbladder neck and possible choledocholithiasis. He had increased wall thickening as compared to February 14. His MRI showed cholecystitis without c holedocholithiasis, gallstone sludge, and pericholecystic fluid. His laboratory work has shown that his white count has decreased, it is now 10.93, but his hemoglobin and hematocrit have also decreased slightly as well. His platelet count is 180. His LFTs on February 14 were notable for a total leora irubin of 1.7 and conjugated bilirubin of 0.2, and on February 17 0.8. His AST and ALT are normal. His alk phos is normal. I was asked to consult on his gallbladder. He reports that his pain is wor se in his lower abdomen and feels this is more due to his constipation rather than his gallbladder. GI has evaluated him and did not recommend ERCP. They recommended antibiotics and cholecystectomy. PAST MEDICAL HISTORY: Prior PE in 2013. History of hemorrhoids. PAST SURGICAL HISTORY: Right knee surgery for ACL and patellar repair, appendectomy. FAMILY HISTORY: Remarkable for gallbladder disease in his mother. SOCIAL HISTORY: He is a nonsmoker. He eats well and exercises. He lives alone. MEDICATIONS: No home medications. ALLERGIES: No known drug allergies. REVIEW OF SYSTEMS: Ten-point review of systems negative except per HPI. PHYSICAL EXAM: VITAL SIGNS: 37.1, 69, 114/68, 12, 91% on room air. GENERAL: Pleasant, well-nouris hed, nontoxic man lying in bed. HEENT: Normocephalic. No gross hearing deficits. Mucous membranes moist. Pupils equal and round. No scleral icterus. LUNGS: Clear to auscultation bilaterally. No increased work of breathing. CARDIAC: Regular rate. No peripheral edema. ABDOMEN: Bowel sounds present. He is nontender in the right upper quadrant. He does have some lower abdominal discomfort. Certainly no rebounding or guarding or peritoneal signs. MUSCULOSKELETAL: Normal nails. PSYCH: Mood and affect normal. NEURO: Grossly intact. RESULTS: Reviewed per HPI. IMPRESSION AND PLAN: The patient is a 52-year-old man with acute calculous cholecystitis. I have re commended that he proceed with laparoscopic cholecystectomy. At this time, he would like to pursue o ther means of reducing inflammation and stones in his gallbladder. He discussed the risks of gallbla dder rupture. I explained that I have never seen this in practice, but I have seen stones erode arou nd the gallbladder. I explained that his gallbladder is being described as hydrops with sludge, ston es, and increasing wall thickening. I recommend that he proceed with surgery. I will evaluate him a gain in the morning. We discussed if he had increased pain with eating that that would certainly be one way to monitor if he should reevaluate and if pain escalates or if he develops fevers. We discus sed risks such as ascending cholangitis or bacteremia. We discussed that if he is doing well, he cou ld consider having repeat labs and ultrasound. I will see him again in the morning. /[id number]/MODL
[2018-02-18] MEDS: MULTIVITAMINS 1 EACH TAB PO SCH (08:31)
[2018-02-18] MEDS: SENNOSIDES/DOCUSATE SODIUM TAB PO SCH ×2 (08:33→22:14)
[2018-02-18] MEDS: CHOLECALCIFEROL VIT D3 1,000 UNITS TAB PO SCH (08:33)
[2018-02-18] MEDS ORDERED: Herbals/Supplements -Info Only PO SCH (09:00)
--- NOTE | 2018-02-18 09:14 | SOAPPROG ---
SOAP Progress Note Assessment/Plan: Assessment: s: Naida 52 year old male, admitted for increasing abdominal pain and distention. He presented to the ER on 02/14/2018 after eating a large meal. A CT at that time revealed acute cholecystitis, pericholecystic inflammation and constipation. Ultrasound also showed cholelithiasis. His symptoms resolved and he was discharged home from the ER after declining surgery. He presented two times within the next two days for worsening symptoms, and was admitted on 02/17/2018. He is still declining surgery at this time, and feels that his pain is more consistent with constipation and would like to continue laxatives. He does endorse some periumbilical tenderness, and states that he feels "bloated". Denies fever, chills, or worsening pain. O: VSS stable General: Awake, alert and oriented, sitting in recliner Atraumatic, normocephalic, no scleral icterus. Cardiac: no peripheral edema Resp: normal work of breathing, Abdomen: bowel sounds present. Tender to deep palpation RUQ/periumbilical. Distended but soft. Gall bladder palpable. Negative [place]. Neuro: no focal deficit appreciated. Asessment/Plan: The patient is declining surgical intervention at this time. Discussed that bloating is likely due to recent laxative use. Encouraged the patient to be cautious about advancing PO intake abruptly - go slow. Patient agrees that if he has another "attack" that surgery would certainly be indicated. He can followup with his primary provider if his symptoms don't return or escalate or I am happy to see him. Encourage the patient to consider a colonoscopy if symptoms don;t resolve to rule out obstuctive lesion. 02/18/18 09:13 02/18/18 09:14 02/18/18 09:16 02/18/18 09:35 Objective: Vital Signs Temp Pulse Resp BP Pulse Ox 36.5 C 70 16 132/87 H 95 02/18/18 08:00 02/18/18 08:00 02/18/18 08:00 02/18/18 08:00 02/18/18 08:00 Laboratory Results 02/17/18 05:08 02/17/18 05:08 02/17/18 02/18/18 02/19/18 05:59 05:59 05:59 Intake Total 2595 1000 Output Total 800 500 Balance 1795 500 PT 15.2 SEC (12.0-15.0) H 02/17/18 05:08 INR 1.18 (0.83-1.16) H 02/17/18 05:08 ICD10 Worksheet Patient Problems: Problems Problem Status Onset Acute cholecystitis Acute Choledocholithiasis Acute Constipation Acute
--- NOTE | 2018-02-18 10:57 | HOSPPROG ---
Hospitalist Progress Note Assessment/Plan: Naida 52-year-old gentleman with past medical history significant for constipation, recently diagnosed cholecystitis who presents now with worsening abdominal distention and persistent worsening right upper quadrant abdominal pain. He was seen here on February 14 for the same symptoms and evaluated by surgery and declined surgery. First encounter, chart reviewed. Reviewed his care w Dr Cuevas Acute cholecystitis (Acute) - patient reports that he is adamant that he does not want a cholecystectomy - during my evaluation, he is tender in the RUQ area - MRCP done -Both surgery and GI are recommending surgery -still had fever last night, will hold dc -should get an OP colonoscopy Possible Choledocholithiasis - patient LFTs within normal limits at this time - possible ERCP vs other treatment Abdominal pain and distention - better Fever - patient with mildly elevated temp - Mildly elevated WBC - ertapenem Constipation (Acute) - patient is status post a bowel regimen with multiple bowel movements but remains distended hx PE - spoke w [facility] and his PE was in 2012 -will hold treatment dosing -will hold dvt prophylaxis in case he decides on surgery Subjective: Chase c/o ongoing bloating. Objective: Vital Signs Temp Pulse Resp BP Pulse Ox 36.5 C 70 16 132/87 H 95 02/18/18 08:00 02/18/18 08:00 02/18/18 08:00 02/18/18 08:00 02/18/18 08:00 Laboratory Results 02/17/18 05:08 02/17/18 05:08 02/17/18 02/18/18 02/19/18 05:59 05:59 05:59 Intake Total 2595 1000 Output Total 800 500 Balance 1795 500 PT 15.2 SEC (12.0-15.0) H 02/17/18 05:08 INR 1.18 (0.83-1.16) H 02/17/18 05:08 - Physical Exam Constitutional: appears nourished Eyes: PERRL Ears, Nose, Mouth, Throat: hearing normal Cardiovascular: regular rate and rhythym Respiratory: no respiratory distress Gastrointestinal: normoactive bowel sounds, tenderness (ruq), No guarding Skin: warm Musculoskeletal: full muscle strength Neurologic: AAOx3 Psychiatric: interacting appropriately ICD10 Worksheet Patient Problems: Problems Problem Status Onset Acute cholecystitis Acute Choledocholithiasis Acute Constipation Acute
[2018-02-18] MEDS ORDERED: ENOXAPARIN 100 MG/ML SYR SC SCH (13:45)
[2018-02-18] MEDS: ERTAPENEM 1 GM in NS 100 ML IV SCH (22:13)
[2018-02-18] MEDS: Melatonin [Melatonin 5 Mg] 5 MG PO SCH (22:14)
[2018-02-19 08:51] VITALS: BP 114/74
[2018-02-19] MEDS: SENNOSIDES/DOCUSATE SODIUM TAB PO SCH (08:55)
[2018-02-19] MEDS: CHOLECALCIFEROL VIT D3 1,000 UNITS TAB PO SCH (08:55)
[2018-02-19] MEDS: MULTIVITAMINS 1 EACH TAB PO SCH (08:55)
--- NOTE | 2018-02-19 09:58 | HOSPPROG ---
Hospitalist Progress Note Assessment/Plan: Naida 52-year-old gentleman with past medical history significant for constipation, recently diagnosed cholecystitis who presents now with worsening abdominal distention and persistent worsening right upper quadrant abdominal pain. He was seen here on February 14 for the same symptoms and evaluated by surgery and declined surgery. Dr Wilson and I met with Chase today. Acute cholecystitis (Acute) - patient reports that he is adamant that he does not want a cholecystectomy - during my evaluation, he is tender in the RUQ area - MRCP done -Both surgery and GI are recommending surgery - reviewed s/sx of sepsis, increase fever, chills; return to the ER -should get an OP colonoscopy Possible Choledocholithiasis - patient LFTs within normal limits at this time Abdominal pain and distention - better -eating and drinking well Fever - patient with mildly elevated temp - Mildly elevated WBC - ertapenem has been given Constipation (Acute) - resolved hx PE - spoke w [facility] and his PE was in 2012 -not on treatment *Plan: dc home w high recommendations of getting his gallbladder out Subjective: Chase feels great, has no pain. Objective: Vital Signs Temp Pulse Resp BP Pulse Ox 36.6 C 62 12 114/74 97 02/19/18 08:00 02/19/18 08:00 02/19/18 08:00 02/19/18 08:00 02/19/18 08:00 Laboratory Results 02/17/18 05:08 02/17/18 05:08 02/18/18 02/19/18 02/20/18 05:59 05:59 05:59 Intake Total 1000 Output Total 500 1000 Balance 500 -1000 PT 15.2 SEC (12.0-15.0) H 02/17/18 05:08 INR 1.18 (0.83-1.16) H 02/17/18 05:08 - Physical Exam Constitutional: no apparent distress, appears nourished, not in pain Eyes: anicteric sclera Ears, Nose, Mouth, Throat: hearing normal Respiratory: no respiratory distress Gastrointestinal: soft, non-tender abdomen Skin: warm Musculoskeletal: full muscle strength Neurologic: AAOx3 Psychiatric: interacting appropriately ICD10 Worksheet Patient Problems: Problems Problem Status Onset Acute cholecystitis Acute Choledocholithiasis Acute Constipation Acute
[2018-02-19] MEDS ORDERED: AMOXICILLIN/CLAVULANATE POT 875/125 MG TAB PO SCH (10:15)
--- NOTE | 2018-02-19 10:25 | SOAPPROG ---
SOAP Progress Note Assessment/Plan: Assessment: s: Had normal BM this am O: General: Awake, sitting in bed Abdomen: Non tender to deep palpation RUQ - less distension. Gallbladder palpable. Asessment/Plan: The patient is declining surgical intervention at this time. Warning signs discussed again 02/18/18 09:13 02/18/18 09:14 02/18/18 09:16 02/18/18 09:35 02/19/18 10:24 Objective: Vital Signs Temp Pulse Resp BP Pulse Ox 36.6 C 62 12 114/74 97 02/19/18 08:00 02/19/18 08:00 02/19/18 08:00 02/19/18 08:00 02/19/18 08:00 Laboratory Results 02/17/18 05:08 02/17/18 05:08 02/18/18 02/19/18 02/20/18 05:59 05:59 05:59 Intake Total 1000 Output Total 500 1000 Balance 500 -1000 PT 15.2 SEC (12.0-15.0) H 02/17/18 05:08 INR 1.18 (0.83-1.16) H 02/17/18 05:08 ICD10 Worksheet Patient Problems: Problems Problem Status Onset Acute cholecystitis Acute Choledocholithiasis Acute Constipation Acute
--- NOTE | 2018-02-19 17:46 | GDS ---
DISCHARGE DIAGNOSES: 1. Acute cholecystitis. 2. Possible choledocholithiasis. 3. Abdominal pain and distention. 4. Fever. 5. Constipation. 6. History of pulmonary emboli in 2013. CONSULTATIONS: 1. Dr. Wilson. 2. Dr. Johan Buckner. HISTORY OF PRESENT ILLNESS: Briefly, the patient is a very nice 52-year-old gentleman with a history for constipation and was recently diagnosed with a cholecystitis on February 14. At that time, was recommended surgery. He declined. He returned to the ER with similar symptoms. He was admitted. Treated with IV antibiotics. He has declined surgery on this admission and is hopeful that with other alternative treatments he can resolve his symptoms. HOSPITAL COURSE BY PROBLEM: 1. Acute cholecystitis. He does not want surgery at this time. He should get an outpatient colonoscopy. Dr. Wilson and I reviewed the signs of sepsis as well as increased fever, chills to return to the ER. He was treated with ertapenem. He will be discharged on Augmentin. 2. Possible choledocholithiasis. LFTs that are within normal limits. 3. Abdominal pain and distention, resolved. 4. Fever. His temp is low grade at night. 5. Constipation, resolved. 6. History of PE. This was diagnosed in 2013. DISCHARGE CONDITION: Stable. VITAL SIGNS: Blood pressure is 114/74. Heart rate is 62, respiratory rate of 12, O2 sats on room air 97%. Temperature is 36.6 Celsius. MEDICATIONS AT DISCHARGE: Please see the EMR. DISCHARGE INSTRUCTIONS: 1. To advance his diet slowly. 2. If he has bloating or obstructive symptoms, recommend a consult with GI and get a repeat colonoscopy. 3. If his right upper quadrant pain returns or becomes worse, he needs to get his gallbladder out. We have told him multiple times that it is swollen and has stones. To further follow up with Dr. Wilson. 4. If he has fever, chills, worsening pain, to return to the ER. /[id number]/MODL MTDD
== END 2018-02-19 14:16 | disposition home or self-care (01) ==
LOC: F3E 02-17 00:32
PROVIDERS: ADMIT Family Medicine; ATTEND Family Medicine
PROC: BF141ZZ Fluoroscopy of Gallbladder, Bile Ducts and Pancreatic Ducts using Low Osmolar Contrast (ICD-10-PCS; principal; 2018-02-17)
DX: K80.42 Calculus of bile duct with acute cholecystitis without obstruction (principal); Z86.711 Personal history of pulmonary embolism
CPT/HCPCS: 82435-PO; 82565-PO; 82947-PO; 84132-PO; 84295-PO; 84520-PO; 85014-PO; 96374; J1170; J1335; J1650; J1885; J2060; J2405; Q9967